=== PATIENT | female | born 1945 | race Caucasian/White ===

== ENCOUNTER 2025-01-20 06:22 | Day surgery (SDC) | payer MEDICARE, OTHER, SELFPAY | END 2025-01-20 13:49 | disposition home or self-care (01) | LOC: GI 06:22 | PROVIDERS: ATTENDING PHYSICIAN Internal Medicine Gastroenterology | DX: K52.9 Noninfective gastroenteritis and colitis, unspecified (principal); K51.00 Ulcerative (chronic) pancolitis without complications; K64.9 Unspecified hemorrhoids | CPT/HCPCS: 45380; 88305; 88342 ==